=== PATIENT | female | born 1995 | race Caucasian/White ===

== ENCOUNTER 2022-12-22 10:40 | Outpatient (CLI) | payer BC ==
[2022-12-22] VITALS (16 sets, daily range): BP systolic 95–110; BP diastolic 57–73; PULSE 47–88
== END 2022-12-22 23:59 | disposition home or self-care (01) ==
LOC: CARD DIAG 10:40
PROVIDERS: ATTEND Internal Medicine Interventional Cardiology
DX: R55 Syncope and collapse (principal)
CPT/HCPCS: 93660